=== PATIENT | female | born 1990 | race Caucasian/White ===

== ENCOUNTER 2021-11-11 20:45 | Emergency (ER) | payer OTHER, BC ==
[2021-11-11] MEDS ORDERED: traMADol HCl 50 MG TAB ONE (22:11)
== END 2021-11-11 22:21 | disposition home or self-care (01) ==
LOC: CSHERS 20:45
DX: S52.121A Displaced fracture of head of right radius, initial encounter for closed fracture (principal); M79.7 Fibromyalgia; W01.0XXA Fall on same level from slipping, tripping and stumbling without subsequent striking against object, initial encounter; Z87.891 Personal history of nicotine dependence; Z79.899 Other long term (current) drug therapy
CPT/HCPCS: 99283

== ENCOUNTER 2022-02-14 10:51 | Outpatient (CLI) | payer BC ==
[~2022-02-14 10:51] MED LIST: Iopamidol 300 61% 100 ML VIAL FS ONE
== END 2022-02-14 10:52 | disposition home or self-care (01) ==
LOC: CSHCT 10:51
PROVIDERS: ATTEND Nurse Practitioner Family
DX: R91.1 Solitary pulmonary nodule (principal); U09.9 Post COVID-19 condition, unspecified
CPT/HCPCS: 71270; Q9967